=== PATIENT | male | born 1990 | race Caucasian/White ===

== ENCOUNTER 2019-05-19 20:10 | Inpatient (IN) | payer MEDICAID ==
[~2019-05-19] VITALS: Ht 185.4 cm; Wt 81.6 kg
[2019-05-19 21:32] LABS: BASOPHILS 0.1 % (0-2); EOSINOPHILS 0.8 % (0-7); HEMATOCRIT 47.5 % (42.0-54.0); HEMOGLOBIN 17.1 g/dL (13.5-17.5); IMMATURE GRANULOCYTES 0.6 % (0-5); LYMPHOCYTES 21.1 % (15-50); MCH 33.7 pg (26.0-34.0); MCV 93.7 fL (80.0-100.0); MEAN PLATELET VOLUME 10.7 fL (7.4-10.4); MONOCYTES 16.8 % (2-11); NEUTROPHILS 60.6 % (40-80); PLATELET COUNT 213 10x3/uL (130-400); RBC 5.07 10x6/uL (4.20-6.10); RDW 12.7 % (11.5-14.5); WBC 10.8 10x3/uL (4.8-10.8)
[2019-05-19 21:49] LABS: ALBUMIN 3.9 g/dL (3.4-5.0); ALKALINE PHOSPHATASE 143 U/L (46-116); ALT (SGPT) 80 U/L (10-68); BILIRUBIN - TOTAL 2.12 mg/dL (0.2-1.3); CALC OSMOLALITY 272 mosm/kg (275-300); CALCIUM 9.9 mg/dL (8.5-10.1); CHLORIDE - SERUM 97 mmol/L (98-107); CREATININE - SERUM 0.7 mg/dL (0.6-1.3); GLUCOSE 104 mg/dL (74-106); POTASSIUM - SERUM 3.9 mmol/L (3.5-5.1); PROTEIN - SERUM 7.9 g/dL (6.4-8.2); SODIUM 137 mmol/L (136-145); UREA NITROGEN 10 mg/dL (7-18); eGFR NON AFRICAN AMERICAN > 90 mL/min (90-120)
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
[2019-05-20 02:19] VITALS: BP 146/92; BMI 23.8
--- NOTE | 2019-05-20 03:30 | NUR ---
PT HAS BEEN MEDICATED WITH ZOFRAN AND IV DILAUDID FOR NAUSEA/PAIN.
--- NOTE | 2019-05-20 04:39 | NUR ---
PT AWAKE. STILL HURTING 10/10 FOR ALL HIS ABRASIONS/WOUNDS. MEDICATED WITH DILAUDID 1MG SIVP. AND KIDS AT BEDSIDE.
[2019-05-20 05:33] LABS: BASOPHILS 0.1 % (0-2); EOSINOPHILS 1.3 % (0-7); HEMATOCRIT 46.1 % (42.0-54.0); HEMOGLOBIN 16.1 g/dL (13.5-17.5); IMMATURE GRANULOCYTES 0.8 % (0-5); LYMPHOCYTES 23.7 % (15-50); MCH 33.6 pg (26.0-34.0); MCHC 34.9 g/dL (31.0-37.0); MCV 96.2 fL (80.0-100.0); MEAN PLATELET VOLUME 10.5 fL (7.4-10.4); MONOCYTES 15.9 % (2-11); NEUTROPHILS 58.2 % (40-80); PLATELET COUNT 187 10x3/uL (130-400); RBC 4.79 10x6/uL (4.20-6.10); RDW 12.9 % (11.5-14.5); WBC 10.9 10x3/uL (4.8-10.8)
--- NOTE | 2019-05-20 05:34 | NUR ---
I have reviewed this patient and I concur with the Shift Assessment completed by the Licensed Practical Nurse today this shift.
[2019-05-20 05:57] LABS: ALBUMIN 3.4 g/dL (3.4-5.0); ALKALINE PHOSPHATASE 129 U/L (46-116); ALT (SGPT) 69 U/L (10-68); BILIRUBIN - TOTAL 1.44 mg/dL (0.2-1.3); CALCIUM 9.4 mg/dL (8.5-10.1); CARBON DIOXIDE 28.8 mmol/L (21.0-32.0); CHLORIDE - SERUM 101 mmol/L (98-107); GLUCOSE 102 mg/dL (74-106); PROTEIN - SERUM 7.3 g/dL (6.4-8.2); SODIUM 138 mmol/L (136-145)
[2019-05-20 06:07] LABS: CALC OSMOLALITY 275 mosm/kg (275-300); CREATININE - SERUM 0.9 mg/dL (0.6-1.3); UREA NITROGEN 13 mg/dL (7-18); eGFR NON AFRICAN AMERICAN > 90 mL/min (90-120)
--- NOTE | 2019-05-20 09:30 | NUR ---
PT PRESENTED TO NURSES STATION STATING THAT PT IS COMPLAINING OF PAIN. PT COMPLAINS OF 7/10 PAIN. PRN HYDROMORPHONE GIVEN. SHIFT ASSESSMENT COMPLETED.
--- NOTE | 2019-05-20 11:40 | NUR ---
PT COMPLAINS OF PAIN TO LEFT ARM AND KNEE. PRN HYDROMORPHONE GIVEN ORDERED. WILL CONT TO FOLLOW POC
--- NOTE | 2019-05-20 12:20 | NUR ---
PT RESTING IN BED, FAMILY AT BEDSIDE. DENIES ANY NEEDS AT THIS TIME, WILL CONT TO FOLLOW POC
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
[2019-05-20 12:45] VITALS: Ht 185.4 cm; Wt 81.6 kg
[2019-05-20 12:55] VITALS: BP 131/78
--- NOTE | 2019-05-20 14:00 | NUR ---
PT COMPLAINS OF PAIN TO LEFT KNEE. PRN HYDROMORPHONE GIVEN ORDERED. WILL CONT TO FOLLOW POC
[2019-05-20 14:54] VITALS: BP 138/75
--- NOTE | 2019-05-20 16:59 | NUR ---
PT IV PUMP WAS BEEPING. UPON ENTERING PT ROOM, IV WAS DISCONNECTED AND PT WAS NOT IN ROOM. WAS IN ROOM AND ASKED HER WHERE PT WAS AND DID HE DISCONNECT HIMSELF. STATES,"HE WENT OUTSIDE AND I GUESS HE DID, I DON'T KNOW. I WAS IN THE BATHROOM." WILL EDUCATE PT ONCE HE ARRIVES BACK TO HIS ROOM
--- NOTE | 2019-05-20 17:00 | NUR ---
EDUCATION PROVIDED TO PT ON NOT DISCONNECTING SELF FROM IV. PT STATES IT WON'T HAPPEN AGAIN.
[2019-05-20 17:12] LABS: UDS - AMPHET NEGATIVE QUAL (NEGATIVE); UDS - BARB NEGATIVE QUAL (NEGATIVE); UDS - BENZO NEGATIVE QUAL (NEGATIVE); UDS - COCAINE NEGATIVE QUAL (NEGATIVE); UDS - OPIATE POSITIVE QUAL (NEGATIVE); UDS - PCP NEGATIVE QUAL (NEGATIVE); UDS - THC POSITIVE QUAL (NEGATIVE)
[2019-05-20 17:21] LABS: APPEARANCE CLEAR (CLEAR); BILIRUBIN NEGATIVE (NEGATIVE); COLOR DK YELLOW (YELLOW); GLUCOSE NEGATIVE (NEGATIVE); KETONE SMALL mg/dL (NEGATIVE); NITRITE NEGATIVE (NEGATIVE); PROTEIN NEGATIVE (NEGATIVE)
--- NOTE | 2019-05-20 17:35 | NUR ---
RECIEVED CALL FROM ROBOTICS TECHNICIAN TO TRANSFER PT TO [facility]
--- NOTE | 2019-05-20 18:28 | NUR ---
ARRIVE TO ROOM VIA WHEELCHAIR FROM ROOM 2126. AMBULATES TO BED. GAIT STEADY. FAMILY AT BEDSIDE. IV INFUSING RT AC ORDERED. DENIES ANY NEEDS AT THIS TIME. CONTINUE PLAN OF CARE AND SAFETY PRECAUTIONS.
--- NOTE | 2019-05-20 19:26 | NUR ---
PATIENT RESTING IN BED WITH C/O 7/10 PAIN AND REQUESTED PAIN MEDS AND WATER. ADMINISTERED MEDS PER ORDERS AND BROUGHT HIM WATER. PATIENT DENIES OTHER NEEDS AT THIS TIME. BED IN LOWEST POSITION AND CALL LIGHT WITHIN REACH. ENCOURAGED THE PATIENT TO CALL IF HE HAS NEEDS. WILL CONTINUE TO MONITOR.
[2019-05-20 20:00] VITALS: BP 168/83
--- NOTE | 2019-05-21 03:04 | NUR ---
NO TELE MONITORS AVAILABLE AT THIS TIME
[2019-05-21 04:00] VITALS: BP 152/87
[2019-05-21 07:09] LABS: BASOPHILS 0.3 % (0-2); EOSINOPHILS 2.4 % (0-7); HEMATOCRIT 41.6 % (42.0-54.0); HEMOGLOBIN 14.2 g/dL (13.5-17.5); IMMATURE GRANULOCYTES 1.4 % (0-5); MCH 33.4 pg (26.0-34.0); MCHC 34.1 g/dL (31.0-37.0); MCV 97.9 fL (80.0-100.0); MEAN PLATELET VOLUME 10.5 fL (7.4-10.4); MONOCYTES 15.2 % (2-11); NEUTROPHILS 61.7 % (40-80); PLATELET COUNT 176 10x3/uL (130-400); RBC 4.25 10x6/uL (4.20-6.10); RDW 12.7 % (11.5-14.5)
[2019-05-21 07:15] LABS: WBC 7.9 10x3/uL (4.8-10.8)
--- NOTE | 2019-05-21 07:20 | NUR ---
REQUEST TO LEAVE FLOOR. REQUEST DENIED. PATIENT UNPLUGS IV AND LEAVE UNIT ANYWAY.
[2019-05-21 07:30] LABS: ALKALINE PHOSPHATASE 110 U/L (46-116); ALT (SGPT) 59 U/L (10-68); BILIRUBIN - TOTAL 1.04 mg/dL (0.2-1.3); CALC OSMOLALITY 275 mosm/kg (275-300); CALCIUM 8.7 mg/dL (8.5-10.1); CHLORIDE - SERUM 102 mmol/L (98-107); CREATININE - SERUM 0.7 mg/dL (0.6-1.3); GLUCOSE 73 mg/dL (74-106); MAGNESIUM - SERUM 1.9 mg/dL (1.8-2.4); POTASSIUM - SERUM 4.1 mmol/L (3.5-5.1); PROTEIN - SERUM 5.8 g/dL (6.4-8.2); SODIUM 139 mmol/L (136-145); UREA NITROGEN 11 mg/dL (7-18); eGFR NON AFRICAN AMERICAN > 90 mL/min (90-120)
[2019-05-21 08:30] VITALS: BP 145/78
--- NOTE | 2019-05-21 11:47 | NUR ---
PATIENT LEFT UNIT.
[2019-05-21] MEDS ORDERED: HYDROCODON-ACE1 EAC7 PO (15:28)
[2019-05-21] MEDS ORDERED: CLEOCIN HCL300 MG PO (15:46)
[2019-05-21] MEDS ORDERED: SILVADENE20 GM TOPICAL (16:29)
--- NOTE | 2019-05-21 18:00 | MORECARE ---
CASE MANAGEMENT DISCHARGE SUMMARY PATIENT: ABE BRITO II UNIT: [id number] ADM DATE: 05/19/19 AGE: 28 : 92 SEX: M ROOM/BED: D.1213 AUTHOR: LAURITA PECK PHYSICIAN: REFERRING PHYSICIAN: RUPESH HELLER MD DATE OF SERVICE: 05/21/19 Discharge Plan Patient Name: [facility]BE BR[facility] [facility] 1990 Planned Disposition: Home Anticipated Discharge Date: 05/21/19 Discharge Date: Expected LOS: 2 Initial Reviewer: [email or web address] Initial Review Date: 05/20/2019 Generated: 05/21/19 7:00 pm Comments DCP- Discharge Planning Updated by [email or web address]: Deborah Rasmussen on 05/21/19 3:[address] LATE ENTRY 1030 TC TO [employer]. SPOKE WITH FRAN REGARDING VISIT WITH THE PATIENT TO ASSIST W/ MEDICAID APPLICATION IF HE IS ELIGIBLE. FRAN CALLED BACK AND STATED THE PATIENT HAD BEEN SEEN BY DENISE. HE WOULD BE ASSISTING W/ MEDICAID APPLICATION. CM HAS BEEN TO SEE THE PATIENT. THERE IS A LADY WITH 2 SMALL CHILDREN AT HIS BEDSIDE. HE IS OUT WALKING FREQUENTLY WITH THEM. 1300 CM CALLED WOUND CARE NURSE REGARDING WOUND CARE ORDERS. REQUEST CLARIFICATION REGARDING CLEANSING THE WOUND. PATIENT IS TO SHOWER WELL. THEN APPLY THE OINTMENT. 1615 CM TO VISIT THE PATIENT. HE HAS DISCHARGE ORDERS. HE IS PRESENTLY NOT IN THE ROOM. HIS ANTIBIOTIC WILL COST $58.58 AT HIS PHARMACY. CM TO SEE IF THE PATIENT NEEDS MEDICATION ASSIST WHEN HE RETURNS. CM REQUEST PRIMARY NURSE TO GIVE PATIENT DRESSINGS. FOR WOUND CARE. Patient Name: ABE BRITO Page [id number] at 1800 All edits/amendments must be made on the electronic document DICTATION DATE: 05/21/19 1800 [employer] OPERATOR: FEI 05/21/19 1800 RPT#: [id number] DC DATE: STATUS: ADM IN [facility] [address] [place] [address] END OF REPORT
--- NOTE | 2019-05-21 18:09 | MORECARE ---
CASE MANAGEMENT DISCHARGE SUMMARY PATIENT: ABE BRITO II UNIT: [id number] ADM DATE: 05/19/19 AGE: 28 : 92 SEX: M ROOM/BED: D.1213 AUTHOR: LIV,DOC PHYSICIAN: REFERRING PHYSICIAN: RUPESH HELLER MD DATE OF SERVICE: 05/21/19 Discharge Plan Patient Name: ABE BRITO Facility: [facility]:[place] : 1990 Planned Disposition: Home Anticipated Discharge Date: 05/21/19 Discharge Date: Expected LOS: 2 Initial Reviewer: [email or web address] Initial Review Date: 05/20/2019 Generated: 05/21/19 7:08 pm Comments DCP- Discharge Planning Updated by [email or web address]: Deborah Rasmussen on 05/21/19 5:[address] CM WENT TO VISIT THE PATIENT. HE WAS SHOWERING FOR DRESSING CHANGE. MANDIE HAD SPOKEN WITH THE PRIMARY NURSE. PATIENT COULD NOT AFFORD DISCHARGE MEDICATION. MANDIE CALLED HOA BROOKE RN CM, [employer]. SHE AUTHORIZED MEDICATION ASSISTANCE FOR THIS PATIENT. MANDIE HAD PRIMARY NURSE TO CALL PRESCRIPTION IN TO [facility], CONTRACTED PROVIDER FOR [facility]. AMAN BROUSSARD HAD CALLED BACK REGARDING WOUND CARE AND ALSO ORDERED SILVADENE. TOTAL COST FOR CLINDAMYCIN AND SILVADENE IS $52,23. CM WENT BACK TO SPEAK WITH THE PATIENT. NO ONE WAS IN THE ROOM. DCP- Discharge Planning Updated by [email or web address]: Deborah Rasmussen on 05/21/19 3:[address] LATE ENTRY 1030 TC TO [facility]. SPOKE WITH FRAN REGARDING VISIT WITH THE PATIENT TO ASSIST W/ MEDICAID APPLICATION IF HE IS ELIGIBLE. FRAN CALLED BACK AND STATED THE PATIENT HAD BEEN SEEN BY DENISE. HE WOULD BE ASSISTING W/ MEDICAID APPLICATION. CM HAS BEEN TO SEE THE PATIENT. THERE IS A LADY WITH 2 SMALL CHILDREN AT HIS BEDSIDE. HE IS OUT WALKING FREQUENTLY WITH THEM. 1300 CM CALLED WOUND CARE NURSE REGARDING WOUND CARE ORDERS. REQUEST CLARIFICATION REGARDING CLEANSING THE WOUND. PATIENT IS TO SHOWER WELL. THEN APPLY THE OINTMENT. 1615 CM TO VISIT THE PATIENT. HE HAS DISCHARGE ORDERS. HE IS PRESENTLY NOT IN THE ROOM. HIS ANTIBIOTIC WILL COST $58.58 AT HIS PHARMACY. CM TO SEE IF THE PATIENT NEEDS MEDICATION ASSIST WHEN HE RETURNS. CM REQUEST PRIMARY NURSE TO GIVE PATIENT DRESSINGS. FOR WOUND CARE. Last DP export: 05/21/19 5:00 pm Patient Name: ABE BRITO Page [phone] at 1809 All edits/amendments must be made on the electronic document DICTATION DATE: 05/21/191807 HR PAYROLL COORDINATOR: FEI 05/21/191807 RPT#: [id number] DC DATE: STATUS: ADM IN [facility] [address] [place] [address] END OF REPORT
--- NOTE | 2019-05-21 18:18 | NUR ---
ALERT AND ORIENTED X4. AMBULATING IN [place]. DRESSING CHANGE MATERIAL PROVIDED FOR DISCHARGE. MEDICATIONS CALLED TO [facility]. WRITTEN PRESCRIPTION PROVIDED FOR [place]. DISCHARGE INSTRUCTIONS GIVEN VERBALLY AND WRITTEN. DISCHARGE PAPERS SIGNED ON CHART. DC RT AC IV TIP INTACT. ESCORT TO RIDE VIA WHEELCHAIR. REMAINS FREE FROM INJURY.
== END 2019-05-21 18:20 | disposition home or self-care (01) | DRG 603 ==
LOC: D.ER 20:10 → D.M2 23:53 → D.M3 23:53
PROVIDERS: Family Medicine; Family Medicine Adult Medicine; ADMIT Internal Medicine Nephrology; ATTEND Internal Medicine Nephrology
DX: L03.114 Cellulitis of left upper limb (principal); F17.213 Nicotine dependence, cigarettes, with withdrawal; T14.8XXA Other injury of unspecified body region, initial encounter; V29.88XA Motorcycle rider (driver) (passenger) injured in other specified transport accidents, initial encounter; M54.2 Cervicalgia

== ENCOUNTER 2019-05-23 22:03 | Emergency (ER) | payer MEDICAID ==
[~2019-05-23] VITALS: Ht 185.4 cm; Wt 81.8 kg
[~2019-05-23 22:03] MED LIST: CLEOCIN HCL300 MG PO; HYDROCODON-ACE1 EAC7 PO; SILVADENE20 GM TOPICAL
[2019-05-23 22:29] VITALS: BP 140/103; Ht 185.4 cm; Wt 81.8 kg
== END 2019-05-24 00:30 | disposition left against medical advice (07) ==
LOC: D.ER 22:03
DX: L03.114 Cellulitis of left upper limb (principal); T14.8XXA Other injury of unspecified body region, initial encounter; V29.9XXA Motorcycle rider (driver) (passenger) injured in unspecified traffic accident, initial encounter; Y92.410 Unspecified street and highway as the place of occurrence of the external cause